=== PATIENT | female | born 1965 | race Caucasian/White ===

== ENCOUNTER 2017-07-08 12:33 | Emergency (ER) | payer OTHER ==
[~2017-07-08] VITALS: Ht 154.9 cm; Wt 73.5 kg
[2017-07-08 12:44] VITALS: Ht 154.9 cm; Wt 73.5 kg
[2017-07-08 14:20] LABS: BASOPHIL % 0.3 % (0-2); PLATELET COUNT 271 x10^3mcL (130-400); RED CELL DISTRIBUTION WIDTH 12.9 % (11.5-14.5)
[2017-07-08 14:28] LABS: CALCIUM 8.7 mg/dL (8.5-10.1); CHLORIDE SERUM 105 mmol/L (98-107); CREATININE SERUM 0.9 mg/dL (0.6-1.0); GFR1 > 60 mL/min; GLUCOSE SERUM 94 mg/dL (74-106); POTASSIUM SERUM 3.9 mmol/L (3.5-5.1); SODIUM SERUM 141 mmol/L (136-145)
[2017-07-08 14:32] LABS: ALBUMIN 3.5 g/dL (3.4-5.0); ALKALINE PHOSPHATASE 74 U/L (46-116); ALT/SGPT 43 U/L (14-59); AST/SGOT 28 U/L (15-37); BILIRUBIN TOTAL 0.4 mg/dL (0.20-1.00); CHOLESTEROL 188 mg/dL (<200); CHOLESTEROL/HDL RATIO 2.7; HDL CHOLESTEROL 70 mg/dL (40-60); LIPASE 115 IU/L (73-393); TOTAL PROTEIN, SERUM 7.3 g/dL (6.4-8.2); TRIGLYCERIDES 69 mg/dL (<150)
[2017-07-08 14:41] LABS: T3 TOTAL 0.94 ng/mL
[2017-07-08 14:46] LABS: FREE T4 0.97 ng/dL (0.76-1.46); FREE THYROXINE INDEX 2.4 ug/dL (1.4-4.5); T4(THYROXINE) 7.1 ug/dL (4.7-13.3)
[2017-07-08 14:54] LABS: microscopic required? YES; urine erythrocyte 2+ (NEGATIVE)
[2017-07-08 15:23] VITALS: BP 115/69
== END 2017-07-08 15:23 | disposition home or self-care (01) ==
LOC: ED 12:33
PROVIDERS: Specialist
DX: M79.1 Myalgia (principal); M25.561 Pain in right knee; M25.571 Pain in right ankle and joints of right foot; M25.531 Pain in right wrist
CPT/HCPCS: 83880; 84439; 87804; J1885; J2405; J3010; J7030; Q0092

== ENCOUNTER 2018-03-17 06:10 | Emergency (ER) | payer OTHER ==
[~2018-03-17] VITALS: Ht 154.9 cm; Wt 70.9 kg
[2018-03-17 06:16] VITALS: Ht 154.9 cm; Wt 70.9 kg
[2018-03-17 07:09] VITALS: BP 124/90
== END 2018-03-17 07:09 | disposition home or self-care (01) ==
LOC: ED 06:10
DX: J11.1 Influenza due to unidentified influenza virus with other respiratory manifestations (principal); R07.89 Other chest pain
CPT/HCPCS: Q0092

== ENCOUNTER 2018-10-25 19:00 | Emergency (ER) | payer OTHER ==
[~2018-10-25] VITALS: Ht 154.9 cm; Wt 70.9 kg
[2018-10-25 19:24] VITALS: BP 133/81; Ht 154.9 cm; Wt 70.9 kg
== END 2018-10-25 21:04 | disposition home or self-care (01) ==
LOC: ED 19:00
DX: S46.912A Strain of unspecified muscle, fascia and tendon at shoulder and upper arm level, left arm, initial encounter (principal); Z98.82 Breast implant status; Z90.710 Acquired absence of both cervix and uterus; X58.XXXA Exposure to other specified factors, initial encounter; Y93.89 Activity, other specified; Y92.89 Other specified places as the place of occurrence of the external cause; Y99.8 Other external cause status
CPT/HCPCS: J1885